=== PATIENT | male | born 1975 | race Caucasian/White ===

== ENCOUNTER 2016-12-02 08:04 | Outpatient (CLI) ==
--- NOTE | 2016-12-02 09:46 | CT ---
EXAM: CT THORAX HISTORY: Chest pain. TECHNIQUE: CT thorax without intravenous contrast. 5-mm axial sections. Coronal and sagittal re-fo rmations. COMPARISON: None FINDINGS: Normal heart size. No pericardial effusion. No vascular calcifications to indicate atherosclerotic disease. Normal appearing thoracic aorta within limits of exam technique. No evidence of mediasti nal or hilar lymphadenopathy. The esophagus has normal wall thickness. No hiatal hernia. There are no abnormal mediastinal fluid collections. Normal thyroid gland. There is a tiny right lower lobe pulmonary nodule about 0.25 cm without obvious calcification. Ther e is a tiny nodule in the left lower lobe measuring about 0.3 cm with no definite calcification. Latesha ngs are otherwise unremarkable. No acute infiltrates, vascular congestion, pleural thickening, pleu ral fluid or pneumothorax. The bones reveal mild anterior and lateral osteophytic spurring of the mid thoracic spine. No axill amelia lymphadenopathy. Visualized structures of the abdomen were grossly unremarkable. IMPRESSION: 1. No vascular calcifications are identified to indicate atherosclerosis. 2. Lungs are free of infiltrate. 3. There is a single tiny, indeterminate nodule present in each lung. For a low risk patient of th is age, these likely represent postinflammatory foci. 4. No hiatal hernia was identified. No obvious upper abdominal abnormality.
== END 2016-12-02 08:05 | disposition home or self-care (01) ==
LOC: RAD 08:04
PROVIDERS: ATTEND Internal Medicine
DX: R07.9 Chest pain, unspecified (principal)

== ENCOUNTER 2017-07-21 09:15 | Outpatient (CLI) | END 2017-07-21 09:16 | disposition home or self-care (01) | LOC: LAB 09:15 | PROVIDERS: ATTEND Internal Medicine | DX: Z01.812 Encounter for preprocedural laboratory examination (principal) | CPT/HCPCS: 36415; 82565 ==

== ENCOUNTER 2017-07-23 09:00 | Outpatient (CLI) ==
--- NOTE | 2017-07-23 10:26 | CT ---
EXAM: CT ABDOMEN AND PELVIS HISTORY: Abdominal pain with nausea and diarrhea. TECHNIQUE: CT abdomen and pelvis with intravenous contrast. Oral contrast was administered. Images were reconstructed using 5 mm section thickness. Reformations were prepared. No intravenous contras t data provided. FINDINGS: Liver is within normal limits. Spleen is approaching upper limit normal in volume/length with an est imated index of 480 cubic cm. Gallbladder and pancreas are unremarkable. No adrenal mass. Normal e nhancement of the kidneys with no hydronephrosis or nephrolithiasis. The ureters are clear. Normal abdominal aorta. Scattered, small nonspecific mesenteric root lymph nodes are seen, possibly reactiv e in nature. Stomach appears normal. No hiatal hernia. Normal appendix. Normal bowel gas pattern and general stalin earance. Urinary bladder is unremarkable. No prostate enlargement. There is no ascites or inflamma tory infiltration of the abdominal fat. No ventral abdominal wall hernia. Bones are within normal limits. Lung bases are free of acute infi ltrates. Tiny 1.5 mm nonspecific micro nodule left lung base possibly postinflammatory in nature. No pneumoperitoneum. IMPRESSION: 1. No acute intra-abdominal or pelvic abnormality. 2. Splenic size/volume is approaching upper limit normal. 3. Multiple small nonspecific mesenteric lymph nodes are seen slightly greater in number than normal ly seen for patient of this age. These could be reactive in nature. 4. Tiny micro nodule left lung base possibly postinflammatory in nature.
--- NOTE | 2017-07-23 13:06 | US ---
EXAM: ULTRASOUND ABDOMEN LIMITED HISTORY: Abdominal pain FINDINGS: Ultrasound abdomen, limited. Geiger-scale ultrasound and color Doppler was performed. Live r size was normal at about 11 cm. The liver parenchyma demonstrated normal sonographic appearance wit hout evidence of intrahepatic biliary dilatation or focal lesion. Patent and hepatopedal main portal vein. Echogenic substance within the gallbladder lumen is consistent with gallbladder sludge. No distinct gallbladder stones were seen. The gallbladder wall thickness was normal at 0.15 cm. The common bile duct diameter was normal 0.42 cm. Visualized pancreas was within normal limits. No ascites. IMPRESSION: Gallbladder sludge without gallbladder wall thickening or common bile duct dilatation. N o ascites.
== END 2017-07-23 09:01 | disposition home or self-care (01) ==
LOC: RAD 09:00
PROVIDERS: ATTEND Internal Medicine
DX: R10.9 Unspecified abdominal pain (principal)
CPT/HCPCS: 36415; 82784; 83516

== ENCOUNTER 2018-03-04 08:26 | Outpatient (CLI) ==
--- NOTE | 2018-03-04 11:41 | DI ---
EXAM: KUB. History: Endoscopy pill passage Findings: Nonspecific but nonobstructive bowel gas pattern. No acute osseous abnormalities. Pelvic calcifications are probably phleboliths. There is a 1.5 cm linear radiopaque structure seen within t he lower abdomen projecting over the sacrum. No gross free intraperitoneal air. Impression: Linear metallic foreign body seen within the lower abdomen. Recommend further evaluatio n with CT
--- NOTE | 2018-03-04 11:44 | CT ---
EXAM: CT abdomen pelvis without contrast HISTORY: Abdominal pain, pill endoscopy COMPARISON: Radiograph same day and CT 07/23/2017 TECHNIQUE: CT abdomen pelvis performed without intravenous contrast. Coronal and sagittal reformatt ed images obtained. FINDINGS: Tiny 2 mm micronodule left lung base is unchanged from 12/02/2016 CT chest and most consis tent with a benign etiology. No free air. No acute abnormalities of the bones. Mild degenerative ch deanne in the spine. Heart normal in size. Evaluation organ parenchyma limited without contrast. Min imal portion dome of liver excluded from view. Liver appears normal. Gallbladder appears normal. P ancreas appears normal. Spleen top normal in size Adrenals appear normal. Kidneys appear normal. Aorta normal in caliber. No lymphadenopathy, noting scattered normal size mesenteric lymph nodes. N o ascites. Minimal fat-containing periumbilical hernia. Prostate normal in size. Bladder only minim ally distended and poorly evaluated, grossly unremarkable. Stomach appears normal. No dilated loops small bowel. Appendix appears normal. There is a linear metallic density in the dependent cecum me asuring up to 1.1 cm. Appearance is most consistent with an Endoclip. Colon otherwise unremarkable. IMPRESSION: 1. No acute abnormality identified in the abdomen or pelvis. 2. 1.1 cm linear metallic density in the cecum. Appearance is most consistent with an Endoclip.
== END 2018-03-04 08:27 | disposition home or self-care (01) ==
LOC: RAD 08:26
PROVIDERS: ATTEND Emergency Medicine
DX: R10.9 Unspecified abdominal pain (principal)